=== PATIENT | male | born 2000 ===

== ENCOUNTER 2023-11-04 04:06 | Day surgery (SDC) | payer OTHER ==
[2023-10-28 15:26] VITALS: BMI 30.2
[2023-11-04] MEDS ORDERED: LIDOCAINE HCL 1%, 10 MG/ML (20ML VIAL) ONE (07:41)
[2023-11-04] MEDS ORDERED: MIDAZOLAM HCL 2 MG/2 ML SINGLE DOSE VIAL ONE (10:07)
[2023-11-04] MEDS ORDERED: PROPOFOL 40 ML ONE (10:15)
[2023-11-04] MEDS ORDERED: HYDROmorphone HCl 2 MG/ML VIAL ONE (10:15)
[2023-11-04] MEDS ORDERED: ROCURONIUM BROMIDE 50 MG/5 ML SYRINGE ONE (10:19)
[2023-11-04] MEDS ORDERED: ACETAMINOPHEN INJECTION 100 ML IVPB ONE (10:30)
[2023-11-04] MEDS ORDERED: DEXMEDETOMIDINE HCL 200 MCG/2 ML IVPB ONE (10:30)
[2023-11-04] MEDS: LIDOCAINE 1%/EPI 1:100000 (20 ML MULTI DOSE VIAL) IJ ONE ×4 (10:33→11:18)
[2023-11-04] MEDS: ceFAZolin SODIUM 1 GM VIAL IVPB ONE (10:34)
[2023-11-04] MEDS: OXYMETAZOLINE 0.05% NASAL SOLUTION 15 ML BOTTLE NS ONE (10:36)
[2023-11-04] MEDS ORDERED: SUGAMMADEX SODIUM 200 MG/2 ML VIAL ONE (11:32)
[2023-11-04] MEDS ORDERED: ePHEDrine SULFATE 50 MG/1 ML AMPULE ONE (11:41)
[2023-11-04] MEDS ORDERED: oxyCODONE HCL 5 MG TABLET PO PRN ×2 (12:02)
[2023-11-04] MEDS ORDERED: LACTATED RINGERS SOLUTION 1,000 ML IV SCH (12:15)
[2023-11-04] MEDS ORDERED: ONDANSETRON 4 MG/2 ML VIAL ONE (14:00)
[2023-11-04 14:18] VITALS: RESP 18; TEMP 97
[2023-11-04 16:24] VITALS: BP 127/73; PULSE 75
== END 2023-11-04 17:01 | disposition home or self-care (01) ==
LOC: JASU-SURG 04:06 → EDSEX 08:00 → JASU-SURG 17:01
PROVIDERS: ATTEND Otolaryngology
PROC: 09BL8ZZ Excision of Nasal Turbinate, Via Natural or Artificial Opening Endoscopic (ICD-10-PCS; 2023-11-04)
PROC: 09BM8ZZ Excision of Nasal Septum, Via Natural or Artificial Opening Endoscopic (ICD-10-PCS; principal; 2023-11-04 10:30)
DX: J34.2 Deviated nasal septum (principal); J34.3 Hypertrophy of nasal turbinates; R09.81 Nasal congestion
CPT/HCPCS: 86850; 86900; 86901; 88304-TC; 88311-TC; 94760; J0131